=== PATIENT | female | born 1980 | race Caucasian/White ===

== ENCOUNTER 2019-08-23 11:01 | Outpatient (CLI) | payer OTHER, SELFPAY ==
--- NOTE | 2019-08-23 11:20 | XR_ITS ---
WS: [id number] SHOULDER LEFT TECHNIQUE: 3 views of the left shoulder CLINICAL INFORMATION: shoulder pain COMPARISON: None. FINDINGS: Normal acromioclavicular joint. Normal glenohumeral joint. Acromion is normal in appearance. Normal g lenoid. No evidence of acute fracture dislocation. XR/XR shoulder LT min 2V* [id number] IMPRESSION: Normal left shoulder.
== END 2019-08-23 11:02 | disposition home or self-care (01) ==
PROVIDERS: Family Provider Nurse Practitioner Family; PCP Registered Nurse; Visit Provider Registered Nurse
DX: M25.312 Other instability, left shoulder (principal); M25.512 Pain in left shoulder
CPT/HCPCS: 73030

== ENCOUNTER 2019-08-27 08:44 | Outpatient (CLI) | payer OTHER, SELFPAY ==
--- NOTE | 2019-08-27 08:53 | MR_ITS ---
WS: [id number] MRI LEFT SHOULDER NONCONTRAST TECHNIQUE: Sagittal T2, coronal T1, T2 and proton density imaging. Axial gradient PDE imaging. CLINICAL INFORMATION: LT SHOULDER PAIN;POSSIBLE IMPINGEMENT COMPARISON: None. FINDINGS: Mild degenerative arthritis at the AC joint. Mild downsloping of the acromion with a small subacromia l effusion. Undersurface subacromial spurring with slight impingement on the underlying supraspinatus . Normal supraspinatus. Normal infraspinatus. Normal teres minor. Subscapularis is normal. No evidence of rotator cuff tear. Normal biceps tendon in the bicipital groove. Grossly normal glenoid labrum. No rmal soft tissues. MR/MR shoulder LT wo con* [id number] IMPRESSION: 1. Moderate degenerative arthritis at the AC joint with mild downsloping of th e acromion. Trace subacromial effusion. Subacromial undersurface spurring with slight impingement on the underlying supraspinatus. 2. Rotator cuff is intact. No acute rotator cuff tears. 3. Normal biceps tendon in the bicipital groove. 4. Glenoid labrum is grossly intact.
== END 2019-08-27 08:45 | disposition home or self-care (01) ==
LOC: RADSHAW 08:44
PROVIDERS: Family Provider Nurse Practitioner Family; PCP Registered Nurse; Visit Provider Registered Nurse
DX: M19.012 Primary osteoarthritis, left shoulder (principal); M25.512 Pain in left shoulder
CPT/HCPCS: 73221

== ENCOUNTER → 2020-01-10 09:43 | Outpatient (BNVA) | payer OTHER, SELFPAY | PROVIDERS: Family Provider Nurse Practitioner Family; PCP Registered Nurse; Visit Provider Registered Nurse | DX: Z20.828 Contact with and (suspected) exposure to other viral communicable diseases (principal); I10 Essential (primary) hypertension | CPT/HCPCS: 87635 ==

== ENCOUNTER → 2021-07-14 11:39 | Outpatient (BNVA) | payer OTHER, SELFPAY | PROVIDERS: Family Provider Nurse Practitioner Family; PCP Registered Nurse; Visit Provider Registered Nurse | DX: Z20.822 Contact with and (suspected) exposure to COVID-19 (principal); J06.9 Acute upper respiratory infection, unspecified; R50.9 Fever, unspecified | CPT/HCPCS: 87635 ==

== ENCOUNTER → 2021-11-12 08:11 | Outpatient (BNVA) | payer MEDICAID, SELFPAY | PROVIDERS: Family Provider Nurse Practitioner Family; PCP Registered Nurse; Visit Provider Registered Nurse | DX: E53.8 Deficiency of other specified B group vitamins (principal); N92.1 Excessive and frequent menstruation with irregular cycle; E03.9 Hypothyroidism, unspecified; I10 Essential (primary) hypertension | CPT/HCPCS: 80053; 82607; 84443; 85025 ==

== ENCOUNTER 2021-12-17 09:53 | Outpatient (CLI) | payer MEDICAID, SELFPAY ==
--- NOTE | 2021-12-17 10:08 | MM_ITS ---
WS: [id number] SCREENING DIGITAL BREAST TOMOSYNTHESIS MAMMOGRAM WITH CAD HISTORY: SCREENING COMPARISON: 04/06/2018 Bilateral CC and MLO with tomosynthesis views submitted. Synthetic mammography reviewed. Computer aid ed detection analyzed. Breast composition: The breasts are heterogeneously dense, which may obscure small masses. No suspici ous masses, microcalcifications or architectural distortion. Fibroglandular densities are greater wit hin the RIGHT breast than the LEFT. No interval change since the prior examination. MM/[place] [id number] IMPRESSION: BI-RADS: 2-Benign FOLLOW UP: 1 Year Follow-up
== END 2021-12-17 09:54 | disposition home or self-care (01) ==
PROVIDERS: PCP Registered Nurse; Visit Provider Registered Nurse
DX: Z12.31 Encounter for screening mammogram for malignant neoplasm of breast (principal); D64.9 Anemia, unspecified; N92.1 Excessive and frequent menstruation with irregular cycle
CPT/HCPCS: 77063; 77067; 82746; 83036; 83550; 87624; 88305

== ENCOUNTER 2022-02-11 06:00 | Outpatient (CLI) | payer MEDICAID, SELFPAY ==
--- NOTE | 2022-02-11 06:15 | US_ITS ---
WS: [id number] TRANSABDOMINAL PELVIC AND TRANSVAGINAL PELVIC ULTRASOUND HISTORY: N93.9 - Abnormal uterine and vaginal bleeding, unspecified COMPARISON: None available. Uterus: 9.2 cm x 5.6 cm x 4.8 cm. Uterus is mildly enlarged and anteverted. Heterogeneous appearance of the myometrium. Endometrium remain centered. Endometrium: 0.9 cm. Normal size endometrium. No increased vascularity. Right ovary: 2.2 cm x 1.4 cm x 2.0 cm. Normal size ovary. No increased vascularity. No mass. Left ovary not visualized. No adnexal mass. Trace free fluid. US/US pelvic with transvaginal IMPRESSION: 1. Mildly enlarged heterogeneous uterus. No fibroid identified. 2. No endometrial abnormality identified.
== END 2022-02-11 06:01 | disposition home or self-care (01) ==
PROVIDERS: PCP Registered Nurse; Visit Provider Obstetrics & Gynecology
DX: N93.9 Abnormal uterine and vaginal bleeding, unspecified (principal)
CPT/HCPCS: 76830; 76856

== ENCOUNTER 2022-03-23 09:12 | Day surgery (SDC) | payer MEDICAID, SELFPAY ==
[2022-03-23] VITALS (13 sets, daily range): BP systolic 118–160; BP diastolic 52–94; PULSE 46–100; RESP 14–18; TEMP 36.2–36.4; O2SAT 93–99
[2022-03-23 10:21] LABS: OR HCG Qualitative Urine Negative (Negative)
[2022-03-23] MEDS: sodium chloride 0.9% 1,000 ML 30 ML IV (10:32)
--- NOTE | 2022-03-23 10:41 | ANES.PREANE2 ---
Pre-Anesthetic Assessment Height/Weight: Height 1.63 m Weight 87.09 kg Temp Pulse Resp BP Pulse Ox O2 Del Method 97.5 F L 46 L 18 160/52 99 03/23/22 10:25 03/23/22 10:25 03/23/22 10:25 03/23/22 10:25 03/23/22 10:25 03/23/22 10:25 Preop Diagnosis: AUB, endometrial polyp Operation Date: 03/23/22 11:15 Proposed Procedures p Hysteroscopy, dilation and curettage with Myosure 67998, 93051, 05513,B84.0,N93.0(Not Applicable) - Madalyn Cowart MD s Dilation And Curettage (D&C)(Not Applicable) - Madalyn Cowart MD Familial anesthetic complications: None Was Beta Haroon taken within 24 hours: N/A Was Clonidine taken within 24 hours: N/A Last intake: Intake Last Liquid Date 03/22/22 Last Liquid Time 19:00 Last Solid Date 03/22/22 Last Solid Time 17:30 Social No alcohol and No tobacco Exam alert, oriented x 3, clear to auscultation bilaterally and regular rate & rhythm Airway Mallampati: Class II Dentition: full Pulmonary None reported CV/HEM Anemia (iron deficiency), Arrythmia (bradycardia - 40s to 50s) and Hypertension GI hx gastric bypass Metabolic b12 deficiency Anesthetic Plan ASA status: 3 Anesthesia: General Risk of > 500 ml blood loss (7ml/kg in children): No Medications/Allergies Home Medications Medication Instructions Recorded Confirmed Last Taken Type lisinopril 20 mg tablet 40 mg PO DAILY 90 days #180 tabs 05/27/21 03/23/22 03/22/22 Rx trazodone 100 mg tablet 100 mg PO DAILY #90 tabs 12/14/21 03/23/22 03/22/22 Rx syringe with needle 3 mL 23 gauge #1 ea 12/15/21 03/18/22 Unknown Rx x 1 1/2 (BD Luer-Kyle Syringe) cyanocobalamin (vitamin B-12) 1,000 mcg IM .MONTHLY B12 03/22/22 03/23/22 Unknown Rx 1,000 mcg/mL injection solution deficiency 1 month #1 mL ferrous sulfate 325 mg (65 mg 325 mg PO DAILY #30 tabs 03/22/22 03/23/22 03/22/22 Rx iron) tablet (Feosol) Allergies Allergy/AdvReac Type Severity Reaction Status Date / Time aspirin Allergy Epistaxis Verified 03/18/22 15:44 codeine Allergy difficulty Verified 03/18/22 15:44 [From [employer] with Codeine] breathing Current Medications Generic Name Dose Route Start Last Admin Trade Name Freq PRN Reason Stop Dose Admin Sodium Chloride 1,000 mls @ 30 mls/hr 03/23/22 10:15 03/23/22 10:32 Sodium Chloride 0.9% IV 03/24/22 10:14 30 mls/hr .Q24H PAULY Administration PFSH Anesthesia Medical History Bradycardia with 51-60 beats per minute Diabetes Hypertension Impingement syndrome, shoulder, left No pertinent past medical history neghx: dm, thyroid, dvt/pe PCP: Fernandez Reyna Plantar fasciitis of right foot Surgical History Hx of gastric bypass Hx of knee surgery right knee Hx of tubal ligation Family History Denies family history of Diabetes CAD (coronary artery disease) Clotting disorder Dementia Hyperlipidemia Psychiatric illness Chronic kidney disease (CKD) Suicide Anesthesia complication Bleeding disorder Family history of premature coronary artery disease Lung disease Cancer Hypertension Stroke Social History Smoking and tobacco status: never smoked Alcohol intake: never Current occupational status: employed Female Reproductive History Date of last menstrual period: 03/06/22 Data Anesthesia Cardiac Studies: No Data to Display
--- NOTE | 2022-03-23 11:36 | W.PM.OPSUD ---
Surgery/Procedure H&P Update DATE OF PROCEDURE: March 23, 2022 DATE H&P PERFORMED: 03/18/22 H&P UPDATE INFORMATION: I have reviewed H&P completed within last 30 days, I have examined patient prior to procedure and No changes to prior documentation PREOP DIAGNOSIS: AUB, endometrial polyp PLANNED PROCEDURE: Operation Date: 03/23/22 11:15 Proposed Procedures p Hysteroscopy, dilation and curettage with Myosure 51503, 79814, 36910,B84.0,N93.0(Not Applicable) - Madalyn Cowart MD s Dilation And Curettage (D&C)(Not Applicable) - Madalyn Cowart MD Related Problem List Diagnoses (1) Abnormal uterine bleeding due to endometrial polyp: (2) Abnormal uterine bleeding (AUB):
[2022-03-23] MEDS: ceFAZolin 2,000 MG in sodium chloride 0.9% (plus) 50 ML 100 MG IV (11:39)
[2022-03-23] MEDS: miSOPROStol 200 mcg Tablet 800 MCG VAGINAL (12:18)
--- NOTE | 2022-03-23 12:31 | PM.OP ---
Operative Report Date of procedure: March 23, 2022 Pre-op diagnosis: Preop Diagnosis AUB, endometrial polyp Post-op diagnosis: same Post-op findings: normal appearing endometrium with polyp remnant present Procedure done: hysteroscopy, dilation and curettage with myosure Specimens removed/disposition: endometrial curettings to pathology Surgeon: Madalyn Cowart Anesthesia: General IV fluids (mL): 400 Urine output (mL): 100 Complications: none Findings: 7 weeks sized uterus, normal appearing endometrium hysteroscopy deficit 120 ml Condition: stable Disposition: PACU Procedure: The patient was taken to the operating room where monitored anesthesia was administered and to be adequate. She was prepped and draped in the normal sterile fashion in the dorsal lithotomy position in Enrique stirrups. A weighted speculum was placed into the vagina and the anterior lip of the cervix grasped with a single-tooth tenaculum. The cervix was stenotic. 800 mcg of cytotec was placed under the cervix. Using the pediatric dilators, I was able to dilate up to 16 mohawk. The uterus was sounded to 7 cm. The hysteroscope was advanced into the endometrial cavity. There was a fragment of what appeared to be a polyp and some extra tissue on the top visualized. The MyoSure device was activated and the tissue was removed. Pictures were taken pre and post procedure. All instruments were removed. The patient tolerated the procedure well. Sponge lap and needle counts were correct x3. She was taken to the recovery room in stable condition.
--- NOTE | 2022-03-23 12:38 | PM.DCS ---
Discharge Providers Date of Admission: 03/23/22 Date of Discharge: March 23, 2022 Attending Provider at Admission: Madalyn Cowart MD Attending Provider at Discharge: Madalyn Cowart MD Primary Care Provider: STEPHANIE Kam Diagnoses at Discharge Discharge Diagnosis (1) Abnormal uterine bleeding due to endometrial polyp: Status: Acute (2) Abnormal uterine bleeding (AUB): Status: Acute Hospital Course Hospital Course The patient was admitted for surgery. she did well postoperatively and was ready for discharge. Discharge Data Studies Completed and Pending Pending at discharge Category Date Time Status ES surgery / GI images Routine Exams 03/23/22 11:07 Taken Laboratory Results Urine HCG, Qual Negative (Negative) 03/23/22 10:11 Vitals Last Vital Signs Temp 97.5 F L 03/23/22 10:25 Pulse 46 L 03/23/22 10:25 Resp 18 03/23/22 10:25 BP 160/52 03/23/22 10:25 Pulse Ox 99 03/23/22 10:25 O2 Del Method 03/23/22 10:25 Discharge Plan Discharge Patient Disposition: Home Condition: Stable Prescriptions: Continued lisinopril 20 mg tablet 40 mg PO DAILY 90 Days Qty: 180 3RF Rx Instructions: cancel previous quantity of #90 TAKE 2 TABS ONCE DAILY (DME) syringe with needle [BD Luer-Kyle Syringe] 3 mL 23 gauge x 1 1/2 syringe See Rx Instructions .Route Qty: 1 6RF Rx Instructions: As directed trazodone 100 mg tablet 100 mg PO DAILY Qty: 90 0RF cyanocobalamin (vitamin B-12) 1,000 mcg/mL solution 1,000 mcg IM .MONTHLY 30 Days Qty: 1 1RF ferrous sulfate [Feosol] 325 mg (65 mg iron) tablet 325 mg PO DAILY Qty: 30 0RF Discharge Orders: Discharge Order (Routine); Ordered 03/23/22 Ordered By: Madalyn Cowart Discharge Attestations Time Spent in Discharge Care*: less than 30 min Quality Metrics Clinical Quality Measures [ No reported AMI, CVA or VTE this stay] Coding Level of Care Code Acute Chg FW DC note Diagnoses Abnormal uterine bleeding due to endometrial polyp N93.9; N84.0 Abnormal uterine bleeding (AUB) N93.9
[2022-03-23] MEDS: fentaNYL 50 mcg/mL INJ 2mL IVP ×2 (12:53→13:12)
--- NOTE | 2022-03-23 13:22 | ANE.PACU2 ---
Inpatient post-anesthesia follow up: Airway intact: Yes Vital signs: Temperature 97.1 F Pulse Rate 78 Respiratory Rate 14 Blood Pressure 140/94 Pulse Oximetry 93 Oxygen Delivery Me thod Room Air Oxygen Flow Rate 6 Fraction of Inspir ed Oxygen Hydration adequate: Yes Nausea and vomiting: No Pain level: 1 Mental status: Baseline
[2022-03-23] MEDS: acetaminophen 500 mg Tablet 1000 MG PO (14:43)
== END 2022-03-23 15:06 | disposition home or self-care (01) ==
PROVIDERS: Anesthesiology; PCP Registered Nurse; Visit Provider Obstetrics & Gynecology
PROC: 0UDB8ZZ Extraction of Endometrium, Via Natural or Artificial Opening Endoscopic (ICD-10-PCS; CPT 58558; principal; 2022-03-23 11:05)
PROC: (CPT 58120; 2022-03-23 11:05)
DX: N93.9 Abnormal uterine and vaginal bleeding, unspecified (principal); N84.0 Polyp of corpus uteri; I10 Essential (primary) hypertension; Z98.84 Bariatric surgery status; E11.9 Type 2 diabetes mellitus without complications
CPT/HCPCS: 58558; 81025; 84703; 88305; J2250; J2704; J3010; J7030

== ENCOUNTER → 2022-04-06 14:01 | Outpatient (BNVA) | payer MEDICAID, SELFPAY | PROVIDERS: PCP Registered Nurse; Visit Provider Registered Nurse | DX: R53.83 Other fatigue (principal); R00.1 Bradycardia, unspecified; R06.02 Shortness of breath; D64.9 Anemia, unspecified | CPT/HCPCS: 85025 ==

== ENCOUNTER 2022-05-11 10:24 | Observation (INO) | payer MEDICAID, SELFPAY ==
[2022-05-10 12:43] VITALS: BMI 32.2
[2022-05-11] VITALS (32 sets, daily range): BP systolic 106–166; BP diastolic 51–96; PULSE 48–88; RESP 12–20; TEMP 36.4–36.8; O2SAT 91–99; BMI 32.2
[2022-05-11 06:03] LABS: OR HCG Qualitative Urine Negative (Negative)
[2022-05-11] MEDS: sodium chloride 0.9% 1,000 ML 30 ML IV (06:29)
[2022-05-11 06:30] LABS: Basophils % 0.7 %; Eosinophils # 0.1 10^3/uL (0.0-0.8); Eosinophils % 1.1 %; Hematocrit 35.4 % (37.0-47.0); Hemoglobin 11.9 g/dL (11.5-15.3); Lymphocytes # 1.8 10^3/uL (0.8-4.8); Lymphocytes % 32.1 %; Mean Corpuscular HGB Conc 33.6 g/dL (30.0-36.0); Mean Corpuscular Hemoglobin 31.2 pg (28.0-34.0); Mean Corpuscular Volume 92.7 fl (81-99); Mean Platelet Volume 11.7 fL (7.4-10.4); Monocytes # 0.3 10^3/uL (0.2-0.9); Monocytes % 5.1 %; Neutrophils % 60.6 %; Nucleated Red Blood Cells % 0 %; Platelet Count 176 10^3/cmm (130-400); Red Blood Count 3.82 10^6/uL (4.1-5.3); Red Cell Distribution Width 13.2 % (12.1-15.1); White Blood Count 5.5 10^3/uL (4.0-10.0)
[2022-05-11] MEDS: acetaminophen 1,000 MG/100 ML PIGGYBACK 400 MG IV (06:32)
[2022-05-11] MEDS: phenazopyridine 100 mg Tablet 200 MG PO (06:33)
[2022-05-11] MEDS: scopolamine 1.5 Patch 1 PATCH TRANSDERMA (06:34)
[2022-05-11 06:51] LABS: Blood Urea Nitrogen 7 mg/dL (6-20); Calcium 8.7 mg/dL (8.5-10.5); Carbon Dioxide 25 mmol/L (22-29); Chloride 107 mmol/L (98-107); Glomerular Filtration Rate 134.7 mL/min (90-130); Glucose 82 mg/dL (65-115); Osmolality Calculated 289 mOsm/kg (285-295); Sodium 141 mmol/L (136-145)
[2022-05-11] MEDS: ceFAZolin 2,000 MG in sodium chloride 0.9% (plus) 50 ML 100 MG IV ×3 (07:00→22:48)
--- NOTE | 2022-05-11 07:02 | W.PM.OPSUD ---
Surgery/Procedure H&P Update DATE OF PROCEDURE: May 11, 2022 DATE H&P PERFORMED: 05/05/22 H&P UPDATE INFORMATION: I have reviewed H&P completed within last 30 days, I have examined patient prior to procedure and No changes to prior documentation PREOP DIAGNOSIS: AUB, uterine prolapse PLANNED PROCEDURE: Operation Date: 05/11/22 07:00 Proposed Procedures p Laparoscopic assisted vaginal hysterectomy, bilateral salpingectomy 75809,N93.9(Not Applicable) - Madalyn Cowart MD s Laparoscopic Salpingectomy(Bilateral) - Madalyn Cowart MD Related Problem List Diagnoses (1) Uterine prolapse: (2) Abnormal uterine bleeding (AUB):
[2022-05-11] MEDS: vasopressin 20 unit/mL INJ 4 UNIT INJECTION (08:00)
--- NOTE | 2022-05-11 09:54 | PM.OP ---
Operative Report Date of procedure: May 11, 2022 Pre-op diagnosis: Preop Diagnosis AUB, uterine prolapse Post-op diagnosis: same Post-op findings: 10 week sized fibroid uterus, normal appearing tubes and ovaries. Endometriosis visualized in pelvis Procedure done: LAVH, bilateral salpingectomy, cystoscopy Specimens removed/disposition: uterus and bilateral fallopian tubes to pathology Surgeon: Madalyn Cowart Anesthesia: General Estimated blood loss (mL): 150 IV fluids (mL): 1,000 Urine output (mL): 900 Complications: none Condition: stable Disposition: PACU Procedure: The patient was taken to the operating room where general anesthesia was administered and found to be adequate. She was prepped and draped in the normal sterile fashion in the dorsal lithotomy position in [facility]. A Riddle catheter was placed. A weighted speculum was placed into the vagina and the anterior lip of the cervix was grasped with a single tooth tenaculum. The Zumi uterine manipulator was placed. The weighted speculum was removed. The gloves were changed and attention was turned to the abdomen. A 5 mm supraumbilical incision was made. Using a 5 mm port with the camera, the port was placed into the abdomen. The abdomen was insufflated. Two low, lateral 5 mm ports were placed on the left and right under direct visualization from the camera. There were omental adhesions on several areas of the abdomen. They were taken down with the laparoscopic cautery. The right tube was grasped and elevated. Using the laparoscopic cautery, the mesosalpinx was divided between the ovary and tube up to the cornua. This was performed the same way on the left. The uteroovarian ligaments as well as the round ligaments were ligated. Attention was then turned to the vaginal portion of the procedure. The weighted speculum was placed into the vagina. The zumi manipulator was removed. The single tooth tenaculum was removed and replaced with the lidia's tenaculum. 10 mL of dilute Pitressin was injected at the vesicovaginal junction. A circumferential incision was made at the vesicovaginal junction and the vaginal mucosa reflected cephalad. The posterior peritoneum was entered sharply with the Metzenbaum scissors and the long weighted speculum replaced. Using the Dorota clamps the uterosacral ligaments were clamped cut and suture-ligated. The anterior peritoneum was entered sharply with the metzenbaum scissors. Then sequentially the uterine arteries and cardinal ligaments were clamped cut and suture-ligated. A single-tooth tenaculum was used to deliver the uterus. The remaining segement of the utero-ovarian ligaments were clamped cut and suture-ligated bilaterally and the specimen was removed. There was good hemostasis with only mild bleeding from the cuff. The peritoneum was closed with a pursestring using 2-0 Vicryl. The vaginal cuff was closed with 0 Vicryl in a running locked pattern incorporating the uterosacral ligaments into the lateral aspects of the vaginal cuff. The Riddle catheter was removed and the cystoscope advanced into the bladder. The patient was given pyridium and bilateral spill was noted. There were no injuries or deficits noted in the bladder. The cystoscope was removed and the Riddle was replaced. Vaginal packing was placed for good hemostasis. The gloves and gowns were changed and attention was turned to the abdomen. The ports were closed with 2-0 monocryl with skin glue. The patient tolerated the procedure well. Sponge lap and needle counts were correct x3. She was taken to the recovery room in stable condition.
--- NOTE | 2022-05-11 10:00 | P.PCN_ITS ---
PACU note Narrative: VSS, Good respiratory effort, report to LUNCHEONETTE OPERATOR Exam: awake
--- NOTE | 2022-05-11 10:00 | PM.PACU ---
PACU note Narrative: VSS, Good respiratory effort, report to DOCUMENTATION WRITER Exam: awake
[2022-05-11] MEDS: fentaNYL 50 mcg/mL INJ 2mL IVP ×2 (10:07→10:25)
[2022-05-11] MEDS: HYDROmorphone 1 mg/mL INJ 1 mL 0.5 MG IVP ×2 (10:48→11:03)
[2022-05-11] MEDS: TRAMadol 50 mg Tablet PO ×2 (12:02→21:06)
[2022-05-11] MEDS: lisinopril 20 mg Tablet 40 MG PO (12:27)
[2022-05-11] MEDS: HYDROmorphone 1 mg/mL INJ 1 mL 1.5 MG IVP ×3 (12:47→22:48)
[2022-05-11] MEDS: dextrose 5%-lactated ringers 1,000 ML 125 ML IV ×2 (14:43→22:48)
[2022-05-11] MEDS: acetaminophen 325 mg Tablet 650 MG PO (14:57)
--- NOTE | 2022-05-11 15:17 | ANE.PACU2 ---
Inpatient post-anesthesia follow up: Airway intact: Yes Vital signs: Temperature 97.8 F Pulse Rate 61 Respiratory Rate 14 Blood Pressure 123/70 Pulse Oximetry 92 Oxygen Delivery Me thod Room Air Oxygen Flow Rate Fraction of Inspir ed Oxygen Hydration adequate: Yes Nausea and vomiting: No Pain level: 4 Mental status: Baseline
[2022-05-11] MEDS: ketorolac 30 mg/mL INJ IVP ×2 (15:26→21:07)
[2022-05-11] MEDS: docusate sodium 100 mg Capsule PO (18:16)
[2022-05-11] MEDS: trazodone 100 mg Tablet PO (21:06)
[2022-05-12] MEDS: TRAMadol 50 mg Tablet PO ×2 (01:14→04:54)
[2022-05-12] MEDS: ketorolac 30 mg/mL INJ IVP ×2 (03:52→09:12)
[2022-05-12 03:55] VITALS: BP 82/48; PULSE 48; RESP 18; TEMP 36.9; O2SAT 92
[2022-05-12 05:02] VITALS: BP 86/47
[2022-05-12 05:08] LABS: Hematocrit 31.5 % (37.0-47.0); Hemoglobin 10.3 g/dL (11.5-15.3); Mean Corpuscular HGB Conc 32.7 g/dL (30.0-36.0); Mean Corpuscular Hemoglobin 31.5 pg (28.0-34.0); Mean Corpuscular Volume 96.3 fl (81-99); Mean Platelet Volume 11.9 fL (7.4-10.4); Platelet Count 175 10^3/cmm (130-400); Red Blood Count 3.27 10^6/uL (4.1-5.3); Red Cell Distribution Width 13.4 % (12.1-15.1); White Blood Count 8.2 10^3/uL (4.0-10.0)
--- NOTE | 2022-05-12 06:29 | PM.DCS ---
Discharge Providers Date of Admission: 05/11/22 10:24 Date of Discharge: May 12, 2022 Attending Provider at Admission: Madalyn Cowart MD Attending Provider at Discharge: Madalyn Cowart MD Primary Care Provider: STEPHANIE Kam Diagnoses at Discharge Discharge Diagnosis (1) Uterine prolapse: Status: Acute (2) Abnormal uterine bleeding (AUB): Status: Acute Hospital Course Hospital Course The patient was admitted for surgery. She had an LAVH, bilateral salpingectomy and cystoscopy. She did well postoperatively and was ready for discharge on day #1 Physical Exam Narrative: The patient is doing well. She had some pain control issues overnight. She has a codeine allergy. She was given tramadol, which didn't control her pain. She was switched to percocet and pain is better controlled. Otherwise, she has no concerns. Const: COMMON NORMALS: no acute distress, patient oriented x3, no limitations, healthy appearing, alert and well nourished GI: COMMON NORMALS: Soft to palpation and non-tender PALPATION: Yes Soft to palpation Extremity: COMMON NORMALS: no calf tenderness Neuro: COMMON NORMALS: patient oriented x3 SENSORIUM/ORIENTATION: Yes alert Urinary Catheter Management: Riddle Latex: Cath Placed During This Visit: yes, but has since been removed by the nurse Reason for Continuing Indwelling Catheter: Decision to DC Catheter Urinary Catheter Date of Insertion: 05/11/22 Urinary Catheter Time of Insertion: 07:40 Date Urinary Catheter Removed: 05/12/22 Time Urinary Catheter Discontinued: 04:59 Discharge Data Studies Completed and Pending Pending at discharge Category Date Time Status ES surgery / GI images Routine Exams 05/11/22 06:48 Taken Urine Culture Routine Lab 05/11/22 07:44 Received Pathology: Surgical [PTH] Routine Pth 05/11/22 09:22 Received Laboratory Results WBC 8.2 10^3/uL (4.0-10.0) 05/12/22 04:58 RBC 3.27 10^6/uL (4.1-5.3) L 05/12/22 04:58 Hgb 10.3 g/dL (11.5-15.3) L 05/12/22 04:58 Hct 31.5 % (37.0-47.0) L 05/12/22 04:58 MCV 96.3 fl (81-99) 05/12/22 04:58 MCH 31.5 pg (28.0-34.0) 05/12/22 04:58 MCHC 32.7 g/dL (30.0-36.0) 05/12/22 04:58 RDW 13.4 % (12.1-15.1) 05/12/22 04:58 Plt Count 175 10^3/cmm (130-400) 05/12/22 04:58 MPV 11.9 fL (7.4-10.4) H 05/12/22 04:58 Neut % (Auto) 60.6 % 05/11/22 06:20 Lymph % (Auto) 32.1 % 05/11/22 06:20 Mccormick % (Auto) 5.1 % 05/11/22 06:20 Eos % (Auto) 1.1 % 05/11/22 06:20 Baso % (Auto) 0.7 % 05/11/22 06:20 Neut # (Auto) 3.30 10^3/uL (1.8-7.7) 05/11/22 06:20 Lymph # (Auto) 1.8 10^3/uL (0.8-4.8) 05/11/22 06:20 Mccormick # (Auto) 0.3 10^3/uL (0.2-0.9) 05/11/22 06:20 Eos # (Auto) 0.1 10^3/uL (0.0-0.8) 05/11/22 06:20 Baso # (Auto) 0.0 10^3/uL (0.0-0.1) 05/11/22 06:20 Nucleated RBC % (auto) 0 % 05/11/22 06:20 Nucleated RBCs # 0.0 /100WBC 05/11/22 06:20 Sodium 141 mmol/L (136-145) 05/11/22 06:20 Potassium 4.0 mmol/L (3.5-5.1) 05/11/22 06:20 Chloride 107 mmol/L (98-107) 05/11/22 06:20 Carbon Dioxide 25 mmol/L (22-29) 05/11/22 06:20 Anion Gap 13.0 (5-19) 05/11/22 06:20 BUN 7 mg/dL (6-20) 05/11/22 06:20 Creatinine 0.5 mg/dL (0.5-0.9) 05/11/22 06:20 GFR Calculation 134.7 mL/min (90-130) H 05/11/22 06:20 Glucose 82 mg/dL (65-115) 05/11/22 06:20 Calculated Osmolality 289 mOsm/kg (285-295) 05/11/22 06:20 Calcium 8.7 mg/dL (8.5-10.5) 05/11/22 06:20 Urine HCG, Qual Negative (Negative) 05/11/22 05:58 Blood Type A Positive 05/11/22 06:20 Rho(D) Type Positive 05/11/22 06:20 Antibody Screen Negative 05/11/22 06:20 Vitals Last Vital Signs Temp 98.4 F 05/12/22 03:55 Pulse 48 L 05/12/22 03:55 Resp 18 05/12/22 03:55 BP 86/47 05/12/22 05:02 Pulse Ox 92 05/12/22 03:55 O2 Del Method 05/12/22 03:55 Discharge Plan Discharge Patient Disposition: Home Condition: Stable Prescriptions: New ibuprofen 800 mg Tablet 800 mg PO Q8H Qty: 30 0RF docusate sodium 100 mg Capsule 100 mg PO BID Qty: 60 0RF oxycodone 5 mg tablet 5 mg PO Q6H Qty: 30 0RF Continued cyanocobalamin (vitamin B-12) 1,000 mcg/mL solution 1,000 mcg IM .MONTHLY 30 Days Qty: 1 1RF lisinopril 20 mg tablet 40 mg PO DAILY Rx Instructions: TAKE 2 TABLETS BY MOUTH ONCE DAILY FOR 90 DAYS trazodone 100 mg tablet 100 mg PO DAILY Rx Instructions: Take 1 tablet by mouth once daily ferrous sulfate [FeroSul] 325 mg (65 mg iron) tablet 325 mg PO DAILY Rx Instructions: Take 1 tablet by mouth once daily Discharge Orders: Discharge Order (Routine); Ordered 05/12/22 Ordered By: Madalyn Cowart Patient Instructions: Opioid Safety Discharge Attestations Time Spent in Discharge Care*: less than 30 min Quality Metrics Clinical Quality Measures [ No reported AMI, CVA or VTE this stay] Coding Level of Care Code Acute Chg FW DC note Diagnoses Uterine prolapse N81.4 Abnormal uterine bleeding (AUB) N93.9
[2022-05-12] MEDS: docusate sodium 100 mg Capsule PO (09:12)
[2022-05-12 10:00] VITALS: BP 103/98; PULSE 52; RESP 16; TEMP 36.7; O2SAT 96
[2022-05-12 10:13] VITALS: RESP 16
[2022-05-12] MEDS: oxyCODONE-APAP 5-325 mg Tablet 1 TAB PO (10:13)
== END 2022-05-12 10:00 | disposition home or self-care (01) ==
LOC: OBGYN 10:24
PROVIDERS: Admitting Provider Obstetrics & Gynecology; PCP Registered Nurse; Visit Provider Obstetrics & Gynecology
PROC: 0UT9FZZ Resection of Uterus, Via Natural or Artificial Opening With Percutaneous Endoscopic Assistance (ICD-10-PCS; CPT 58552; principal; 2022-05-11 07:00)
PROC: (CPT 58661; 2022-05-11 07:00)
DX: N93.9 Abnormal uterine and vaginal bleeding, unspecified (principal); N81.4 Uterovaginal prolapse, unspecified
CPT/HCPCS: 58552; 36415; 80048; 81025; 84703; 85025; 85027; 86850; 86900; 87086; 88305; G0378; J1100; J1170; J1885; J2250; J2405; J2704; J3010; J3490; J7030

== ENCOUNTER → 2022-05-31 08:38 | Outpatient (BNVA) | payer MEDICAID, SELFPAY | PROVIDERS: PCP Registered Nurse; Visit Provider Podiatrist Foot & Ankle Surgery | DX: M72.2 Plantar fascial fibromatosis (principal) | CPT/HCPCS: 73630 ==

== ENCOUNTER → 2022-06-24 08:50 | Outpatient (BNVA) | payer MEDICAID, SELFPAY | PROVIDERS: PCP Registered Nurse; Visit Provider Nurse Practitioner Family | DX: R68.89 Other general symptoms and signs (principal); J02.9 Acute pharyngitis, unspecified | CPT/HCPCS: 87400 ==

== ENCOUNTER → 2022-07-22 10:25 | Outpatient (BNVA) | payer MEDICAID, SELFPAY | PROVIDERS: PCP Registered Nurse; Visit Provider Family Medicine Adult Medicine | DX: J11.1 Influenza due to unidentified influenza virus with other respiratory manifestations (principal); J02.9 Acute pharyngitis, unspecified; B34.9 Viral infection, unspecified | CPT/HCPCS: 87071; 87400; 87880 ==

== ENCOUNTER → 2022-08-23 16:06 | Outpatient (BNVA) | payer MEDICAID, SELFPAY | PROVIDERS: PCP Registered Nurse; Visit Provider Registered Nurse | DX: E11.9 Type 2 diabetes mellitus without complications (principal) | CPT/HCPCS: 83036 ==

== ENCOUNTER → 2022-12-13 12:08 | Outpatient (BNVA) | payer MEDICAID, SELFPAY | PROVIDERS: PCP Registered Nurse; Visit Provider Nurse Practitioner | DX: E53.8 Deficiency of other specified B group vitamins (principal); I10 Essential (primary) hypertension; E61.1 Iron deficiency; J30.2 Other seasonal allergic rhinitis; E88.81 Metabolic syndrome and other insulin resistance; E66.9 Obesity, unspecified | CPT/HCPCS: 80053; 80061; 82607; 83540; 84443; 85025 ==

== ENCOUNTER 2023-07-08 08:00 | Day surgery (SDC) | payer MEDICAID, SELFPAY ==
[2023-07-08 08:12] VITALS: BP 133/78; PULSE 72; RESP 18; TEMP 36.3; O2SAT 100; BMI 30.5
[2023-07-08] MEDS: sodium chloride 0.9% 1,000 ML 30 ML IV (08:22)
--- NOTE | 2023-07-08 08:25 | ANES.PREANE2 ---
Pre-Anesthetic Assessment Height/Weight: Height 1.63 m Weight 80.739 kg Temp Pulse Resp BP Pulse Ox O2 Del Method 97.3 F L 72 18 133/78 100 Room Air 07/08/23 08:12 07/08/23 08:12 07/08/23 08:12 07/08/23 08:12 07/08/23 08:12 07/08/23 08:12 Preop Diagnosis: F/H colon CA Operation Date: 07/08/23 09:15 Proposed Procedures p Colonoscopy G0121,Z12.11,Z80.0,K62.89(Not Applicable) - Oskar Saul, DO Was Beta Haroon taken within 24 hours: Yes Was Clonidine taken within 24 hours: N/A Last intake: Intake Last Liquid Date 07/07/23 Last Liquid Time 22:00 Last Solid Date 07/06/23 Social No alcohol and No tobacco Exam alert, oriented x 3, clear to auscultation bilaterally and regular rate & rhythm Airway Submandibular: within normal limits Cervical ROM: within normal limits Mallampati: Class II Dentition: full History/ROS No significant history except as noted and No significant complaints CV/HEM Hypertension None reported Hepatic None reported GI None reported Hx gastric bypass Metabolic Diabetes Mellitus [facility] [place] None reported Neuropsych None reported Anesthetic Plan ASA status: 2 Anesthesia: Anesthesia Evaluation and MAC Risk of > 500 ml blood loss (7ml/kg in children): No Medications/Allergies Home Medications Medication Instructions Recorded Confirmed Last Taken Type pen needle, diabetic 33 gauge x #100 ea 12/14/22 06/07/23 Unknown Rx amlodipine 2.5 mg tablet (Norvasc) 2.5 mg PO DAILY 90 days #90 tabs 02/28/23 07/08/23 07/08/23 Rx ferrous sulfate 325 mg (65 mg See Rx Instructions .Route 02/28/23 07/08/23 07/07/23 Rx iron) tablet (Iron (ferrous .COMPLEX #90 tabs sulfate)) lisinopril 20 mg tablet See Rx Instructions .Route 05/02/23 07/08/23 07/07/23 Rx .COMPLEX #180 tabs hydrocortisone 2.5 % topical cream 1 applic VA DAILY PRN hemorrhoids 05/19/23 07/08/23 Unknown Rx with perineal applicator 1 day #30 grams (Proctozone-HC) cyanocobalamin (vitamin B-12) See Rx Instructions .Route 06/02/23 07/08/23 Unknown Rx 1,000 mcg/mL injection solution .COMPLEX #1 mL cyclobenzaprine 10 mg tablet 10 mg PO BID PRN muscle spasm 30 06/02/23 07/08/23 07/07/23 Rx days #30 tabs liraglutide 0.6 mg/0.1 mL (18 mg/3 1.8 mg (0.3 mL) SUBCUT DAILY #9 mL 06/02/23 07/08/23 06/30/23 Rx mL) subcutaneous pen injector (Victoza 3-Nader) naloxone 8 mg/actuation nasal 1 spray intranasal Q3M PRN opioid 06/02/23 07/08/23 Unknown Rx spray (Kloxxado) overdose #2 ea zolpidem 10 mg tablet 5 - 10 mg (0.5 - 1 x 10 mg) PO 06/02/23 07/08/23 07/07/23 Rx DAILY PRN insomnia 30 days #30 tabs hydrocortisone 2.5 % topical cream 1 applic VA QID hemorrhoids 10 06/07/23 07/08/23 Unknown Rx with perineal applicator days #30 grams (Anusol-HC) Allergies Allergy/AdvReac Type Severity Reaction Status Date / Time aspirin Allergy Epistaxis Verified 07/08/23 08:11 codeine Allergy difficulty Verified 07/08/23 08:11 [From [employer] with Codeine] breathing Current Medications Generic Name Dose Route Start Last Admin Trade Name Freq PRN Reason Stop Dose Admin Sodium Chloride 1,000 mls @ 30 mls/hr 07/08/23 08:15 07/08/23 08:22 Sodium Chloride 0.9% IV 07/09/23 08:14 30 mls/hr .Q24H PAULY Administration PFSH Anesthesia Medical History (Updated 06/07/23 @ 14:42 by Oskar Saul DO) Family history of colon cancer Seasonal allergies Acute viral syndrome Uterine prolapse Plantar fasciitis of right foot Abnormal uterine bleeding (AUB) Diabetes Hypertension Impingement syndrome, shoulder, left Surgical History Hx of tubal ligation Hx of gastric bypass Hx of knee surgery right knee Family History Denies family history of Diabetes CAD (coronary artery disease) Clotting disorder Dementia Hyperlipidemia Psychiatric illness Chronic kidney disease (CKD) Suicide Anesthesia complication Bleeding disorder Family history of premature coronary artery disease Lung disease Cancer Hypertension Stroke Social History Smoking and tobacco/nicotine status: never used tobacco/nicotine Second hand smoke exposure: No Alcohol intake: never Substance/Drug Use: unknown Adopted: No Caregiver/support person: No Lives independently: No Household members: children Housing: House Marital status: Single service: No Current occupational status: employed Do you think of yourself as: Straight/Heterosexual Current gender identity: Female Data Anesthesia Cardiac Studies: No Data to Display
--- NOTE | 2023-07-08 09:29 | PM.HP ---
Providers/Chief Complaint Primary Care Provider: STEPHANIE Kam Chief Complaint: Z80.0 G0121 History of Present Illness Carie Ewing is a 43 year old female Review of Systems General: Reports: 10 or more systems reviewed and unremarkable except in HPI and below Medications/Allergies Home Medications Medication Instructions Recorded Confirmed Last Taken Type pen needle, diabetic 33 gauge x #100 ea 12/14/22 06/07/23 Unknown Rx /32 amlodipine 2.5 mg tablet (Norvasc) 2.5 mg PO DAILY 90 days #90 tabs 02/28/23 07/08/23 07/08/23 Rx ferrous sulfate 325 mg (65 mg See Rx Instructions .Route 02/28/23 07/08/23 07/07/23 Rx iron) tablet (Iron (ferrous .COMPLEX #90 tabs sulfate)) lisinopril 20 mg tablet See Rx Instructions .Route 05/02/23 07/08/23 07/07/23 Rx .COMPLEX #180 tabs hydrocortisone 2.5 % topical cream 1 applic IN DAILY PRN hemorrhoids 05/19/23 07/08/23 Unknown Rx with perineal applicator 1 day #30 grams (Proctozone-HC) cyanocobalamin (vitamin B-12) See Rx Instructions .Route 06/02/23 07/08/23 Unknown Rx 1,000 mcg/mL injection solution .COMPLEX #1 mL cyclobenzaprine 10 mg tablet 10 mg PO BID PRN muscle spasm 30 06/02/23 07/08/23 07/07/23 Rx days #30 tabs liraglutide 0.6 mg/0.1 mL (18 mg/3 1.8 mg (0.3 mL) SUBCUT DAILY #9 mL 06/02/23 07/08/23 06/30/23 Rx mL) subcutaneous pen injector (Victoza 3-Nader) naloxone 8 mg/actuation nasal 1 spray intranasal Q3M PRN opioid 06/02/23 07/08/23 Unknown Rx spray (Kloxxado) overdose #2 ea zolpidem 10 mg tablet 5 - 10 mg (0.5 - 1 x 10 mg) PO 06/02/23 07/08/23 07/07/23 Rx DAILY PRN insomnia 30 days #30 tabs hydrocortisone 2.5 % topical cream 1 applic IN QID hemorrhoids 10 06/07/23 07/08/23 Unknown Rx with perineal applicator days #30 grams (Anusol-HC) Allergies Allergy/AdvReac Type Severity Reaction Status Date / Time aspirin Allergy Epistaxis Verified 07/08/23 08:11 codeine Allergy difficulty Verified 07/08/23 08:11 [From [employer] with Codeine] breathing PFSH Acute PFSH: Medical History (Updated 06/07/23 @ 14:42 by Oskar Saul DO) Family history of colon cancer Seasonal allergies Acute viral syndrome Uterine prolapse Plantar fasciitis of right foot Abnormal uterine bleeding (AUB) Diabetes Hypertension Impingement syndrome, shoulder, left Surgical History Hx of tubal ligation Hx of gastric bypass Hx of knee surgery right knee Family History Denies family history of Diabetes CAD (coronary artery disease) Clotting disorder Dementia Hyperlipidemia Psychiatric illness Chronic kidney disease (CKD) Suicide Anesthesia complication Bleeding disorder Family history of premature coronary artery disease Lung disease Cancer Hypertension Stroke Social History Smoking and tobacco/nicotine status: never used tobacco/nicotine Second hand smoke exposure: No Alcohol intake: never Substance/Drug Use: unknown Adopted: No Caregiver/support person: No Lives independently: No Household members: children Housing: House Marital status: Single service: No Current occupational status: employed Do you think of yourself as: Straight/Heterosexual Current gender identity: Female Vitals/I&O/Wt Last Vital Signs Temp 97.3 F L 07/08/23 08:12 Pulse 72 07/08/23 08:12 Resp 18 07/08/23 08:12 BP 133/78 07/08/23 08:12 Pulse Ox 100 07/08/23 08:12 O2 Del Method Room Air 07/08/23 08:12 Weight last 48 hrs Weight 178 lb A&P Assessment and plan (1) Colon cancer screening: Plan Colonoscopy Attestations Medical Necessity Statement*: Home Coding Level of Care Code Acute Code for Chg Fwd Diagnoses Colon cancer screening Z12.11
[2023-07-08 09:50] VITALS: BP 110/70; PULSE 64; RESP 16; TEMP 36.1; O2SAT 97
[2023-07-08 10:00] VITALS: BP 116/73; PULSE 53; RESP 16; O2SAT 100
--- NOTE | 2023-07-08 13:32 | ANE.PACU2 ---
Inpatient post-anesthesia follow up: Airway intact: Yes Vital signs: Temperature 97 F Pulse Rate 53 Respiratory Rate 16 Blood Pressure 116/73 Pulse Oximetry 100 Oxygen Delivery Me thod Room Air Oxygen Flow Rate Fraction of Inspir ed Oxygen Hydration adequate: Yes Nausea and vomiting: No Pain level: 1 Mental status: Baseline
== END 2023-07-08 10:40 | disposition home or self-care (01) ==
PROVIDERS: PCP Registered Nurse; Visit Provider Surgery
PROC: 0DJD8ZZ Inspection of Lower Intestinal Tract, Via Natural or Artificial Opening Endoscopic (ICD-10-PCS; CPT 45378; principal; 2023-07-08 09:15)
DX: Z12.11 Encounter for screening for malignant neoplasm of colon (principal); E11.9 Type 2 diabetes mellitus without complications; I10 Essential (primary) hypertension; K62.89 Other specified diseases of anus and rectum; K64.8 Other hemorrhoids; Z98.84 Bariatric surgery status
CPT/HCPCS: 45380; 88305; J2704; J7030

== ENCOUNTER → 2023-08-02 11:18 | Outpatient (BNVA) | payer MEDICAID, SELFPAY | PROVIDERS: PCP Registered Nurse; Visit Provider Registered Nurse | DX: R68.89 Other general symptoms and signs (principal); E53.8 Deficiency of other specified B group vitamins; J10.1 Influenza due to other identified influenza virus with other respiratory manifestations; I10 Essential (primary) hypertension | CPT/HCPCS: 87400; 87426 ==

== ENCOUNTER → 2023-10-06 15:32 | Outpatient (BNVA) | payer MEDICAID, SELFPAY | PROVIDERS: PCP Registered Nurse; Visit Provider Registered Nurse | DX: Z20.2 Contact with and (suspected) exposure to infections with a predominantly sexual mode of transmission (principal) | CPT/HCPCS: 87491; 87591 ==

== ENCOUNTER → 2024-03-12 07:39 | Outpatient (BNVA) | payer MEDICAID, SELFPAY | PROVIDERS: PCP Registered Nurse; Visit Provider Registered Nurse | DX: Z98.84 Bariatric surgery status (principal); F51.01 Primary insomnia; I10 Essential (primary) hypertension; E53.8 Deficiency of other specified B group vitamins; E88.810 Metabolic syndrome | CPT/HCPCS: 80053; 80061; 82306; 82607; 83036; 84443; 85025 ==

== ENCOUNTER → 2024-11-22 09:15 | Outpatient (BNVA) | payer MEDICAID, SELFPAY | PROVIDERS: PCP Registered Nurse; Visit Provider Registered Nurse | DX: I10 Essential (primary) hypertension (principal) | CPT/HCPCS: 80053; 82607; 85025 ==

== ENCOUNTER 2024-12-19 14:00 | Outpatient (CLI) | payer MEDICAID, SELFPAY ==
--- NOTE | 2024-12-19 14:00 | MM_ITS ---
WS: [id number] BILATERAL 3D TOMOSYNTHESIS DIGITAL SCREENING MAMMOGRAPHY WITH CAD CLINICAL INFORMATION: Z12.39 - Encounter for other screening for malignant neop... HISTORY: Screening mammogram. No current complaints. COMPARISON: 2021 TECHNIQUE: Bilateral CC and MLO views. FINDINGS: The breasts are composed of heterogeneous fibroglandular density tissue, which can limit the detection of small underlying mass lesions. No suspicious mass, asymmetry, calcifications, or architectural distortion. No evidence of malignancy. Stable dense parenchymal tissue RIGHT breast. MM/MM [facility] tomosynthesis [id number] IMPRESSION: DENSITY: The breasts are heterogeneously dense, which may obscure small masses. BI-RADS: 2 - Benign FOLLOW UP: 1 Year Follow-up Recommend return to annual screening mammography.
== END 2024-12-19 14:01 | disposition home or self-care (01) ==
LOC: MOBLMAM 14:01
PROVIDERS: PCP Registered Nurse; Visit Provider Registered Nurse
DX: Z12.31 Encounter for screening mammogram for malignant neoplasm of breast (principal); R92.333 Mammographic heterogeneous density, bilateral breasts; N64.89 Other specified disorders of breast
CPT/HCPCS: 77063; 77067